=== PATIENT | male | born 1975 | race African-American/Black ===

== ENCOUNTER 2017-07-19 20:18 | Emergency (ER) | payer MEDICAID ==
[~2017-07-19] VITALS: Ht 177.8 cm; Wt 72.0 kg
[2017-07-20 01:53] VITALS: BP 116/73
== END 2017-07-20 01:56 | disposition home or self-care (01) ==
LOC: ER 20:18
DX: L03.116 Cellulitis of left lower limb (principal); H00.023 Hordeolum internum right eye, unspecified eyelid; Z88.0 Allergy status to penicillin
CPT/HCPCS: 99283

== ENCOUNTER 2017-09-06 15:17 | Emergency (ER) | payer MEDICAID ==
[~2017-09-06] VITALS: Ht 177.8 cm; Wt 72.4 kg
[2017-09-06 15:25] VITALS: BP 116/86
== END 2017-09-06 19:10 | disposition home or self-care (01) ==
LOC: ER 16:43
DX: L73.9 Follicular disorder, unspecified (principal); Z88.0 Allergy status to penicillin
CPT/HCPCS: 99283

== ENCOUNTER 2017-10-06 15:12 | Emergency (ER) | payer MEDICAID, OTHER ==
[~2017-10-06] VITALS: Ht 177.8 cm; Wt 70.8 kg
[2017-10-06 16:34] VITALS: BP 117/70
== END 2017-10-06 17:24 | disposition home or self-care (01) ==
LOC: ER 15:57
DX: L03.116 Cellulitis of left lower limb (principal); Z88.0 Allergy status to penicillin
CPT/HCPCS: 99283

== ENCOUNTER 2022-08-13 22:27 | Emergency (ER) | payer OTHER ==
[~2022-08-13] VITALS: Ht 177.8 cm; Wt 77.3 kg
[2022-08-13 22:42] VITALS: BP 119/74
== END 2022-08-14 02:33 | disposition home or self-care (01) ==
LOC: ER 22:27
DX: S60.222A Contusion of left hand, initial encounter (principal); Z88.0 Allergy status to penicillin; X58.XXXA Exposure to other specified factors, initial encounter; Y93.89 Activity, other specified; Y92.89 Other specified places as the place of occurrence of the external cause; Y99.8 Other external cause status
CPT/HCPCS: 73130; 99283

== ENCOUNTER 2022-09-02 13:00 | Emergency (ER) | payer MEDICAID ==
[~2022-09-02] VITALS: Ht 177.8 cm; Wt 77.6 kg
[2022-09-02 13:39] VITALS: BP 121/84
== END 2022-09-02 16:11 | disposition home or self-care (01) ==
LOC: ER 13:00
DX: S63.602A Unspecified sprain of left thumb, initial encounter (principal); X58.XXXA Exposure to other specified factors, initial encounter; Y93.89 Activity, other specified; Y92.89 Other specified places as the place of occurrence of the external cause; Y99.8 Other external cause status
CPT/HCPCS: 99281